=== PATIENT | female | born 1995 | race Hispanic/Latino ===

== ENCOUNTER 2017-01-24 22:16 | Inpatient (IN) | payer MEDICAID, SELFPAY ==
[2017-01-24 23:01] VITALS: BMI 27.4
[2017-01-24] MEDS ORDERED: Lactated Ringer's 1,000 ML IV SCH (23:15)
[2017-01-25] MEDS ORDERED: Fentanyl 4 mcg/Marc 0.1% Cadd 100 ML ONE (01:09)
[2017-01-25] MEDS ORDERED: Ibuprofen 800 MG TAB PO PRN (01:11)
[2017-01-25] MEDS ORDERED: Lidocaine 1% (PF) 30 ML VIAL SC PRN (01:11)
[2017-01-25] MEDS ORDERED: Acetaminophen 500 MG TAB PO PRN (01:11)
[2017-01-25] MEDS ORDERED: Ondansetron HCl/PF 4 MG/2 ML Vial IVP PRN ×3 (01:11→14:57)
[2017-01-25] MEDS ORDERED: LR / Pitocin 40 units/1000 ml 1,000 ML IV PRN (01:11)
[2017-01-25] MEDS ORDERED: Promethazine HCl 25 MG/ML VIAL IM PRN ×2 (01:11→03:22)
[2017-01-25] MEDS ORDERED: Docusate 100 MG CAP PO PRN (01:11)
[2017-01-25 02:22] LABS: Hematocrit 35.5 % (36.0-47.0); Mean Platelet Volume 13.3 fL (7.4-10.4); Red Blood Cell (RBC) Count 4.23 mill/uL (4.20-5.40); White Blood Cell (WBC) Count 13.9 thou/uL (4.8-10.8)
[2017-01-25] MEDS ORDERED: Eucerin (Mineral Oil/Petrolatum,White) 30 gm Jar TOP PRN (03:22)
[2017-01-25] MEDS ORDERED: Lactated Ringer's 500 ML IV PRN (03:22)
[2017-01-25] MEDS ORDERED: diphenhydrAMINE HCl 50 MG/ML 1 ML VIAL IVP PRN (03:22)
[2017-01-25] MEDS ORDERED: Naloxone HCl 0.4 mg/ml Vial IVP PRN ×2 (03:22)
[2017-01-25] MEDS ORDERED: Acetaminophen 325 MG TAB PO PRN (03:22)
[2017-01-25] MEDS ORDERED: ePHEDrine/0.9% NaCl/PF SYRINGE 50 mg/10 ml SLOW IVP PRN (03:22)
[2017-01-25] MEDS ORDERED: Fentanyl 4mcg/Marcaine 0.1% Cassette 100 ML EPIDURAL SCH (03:30)
[2017-01-25] MEDS ORDERED: Communication Order-Pharmacy FS SCH (03:30)
[2017-01-25] MEDS: Lactated Ringer's 1,000 ML IV SCH ×2 (03:39→17:40)
--- NOTE | 2017-01-25 05:04 | PDOC.LDPN ---
Labor & Delivery Progress Note - Subjective Subjective: comfortable - Objective Vital signs reviewed and normal: yes General: NAD, resting, breathing through contractions Uterine fundus: non tender Dilation: 8 Effacement: 100% Station: 1+ FHT: category 2, variable decelerations - Assessment (1) Active labor at term Code(s): [id number] - Current Visit: Yes Status: Acute Plan: continue plan of care
[2017-01-25] MEDS ORDERED: LR 500 ML/Oxytocin 10 units 500 ML IV SCH (07:15)
--- NOTE | 2017-01-25 08:48 | PDOC.LDPN ---
Labor & Delivery Progress Note - Subjective Subjective: comfortable, vaginal pressure - Objective Vital signs reviewed and normal: yes General: NAD, resting Uterine fundus: non tender SVE: 9/100/+1 FHT: category 1 [place] contractions every: 3-4 min AROM: clear fluid - Assessment (1) Active labor at term Code(s): [id number] - Current Visit: Yes Status: Acute Comment: Continue pitocin. Recheck in 1-2 hours or if feeling more pressure. Prepare for impending delivery. FHT Cat I. Plan: continue plan of care, pitocin for augmentation <Munir Sandoval - Last Filed: 01/25/17 08:46> -: Discussed with resident and I agree with their assessment and plan. <Christiano Rapp - Last Filed: 01/25/17 09:37>
--- NOTE | 2017-01-25 11:09 | PDOC.LDPN ---
Labor & Delivery Progress Note - Subjective Subjective: comfortable, vaginal pressure - Objective Vital signs reviewed and normal: yes General: NAD, breathing through contractions Uterine fundus: palpable contractions Dilation: 10 Effacement: 100% Station: 1+ FHT: category 2 (baseline 150, variable decels when pushing, mod variability), variable decelerations, variability present [place] contractions every: 2-3 minutes Plan: continue plan of care, pitocin for augmentation -: Patient has been laboring down for the past hour. The nurse is now teaching her how to push to see how well she moves the baby. Will continue pitocin. <Jacque Barcenas - Last Filed: 01/25/17 11:07> -: Discussed with Dr. Barcenas. I agree with her A&P. <Christiano Rapp - Last Filed: 01/25/17 11:20>
[2017-01-25] MEDS ORDERED: Bisacodyl 10 MG SUPP PR PRN (14:57)
[2017-01-25] MEDS ORDERED: LR / Pitocin 40 units/1000 ml 1,000 ML IV SCH (14:57)
[2017-01-25] MEDS ORDERED: Preparation H Ointment 28 GM TUBE PR PRN (14:57)
[2017-01-25] MEDS ORDERED: diphenhydrAMINE HCl 25 MG CAP PO PRN (14:57)
[2017-01-25] MEDS ORDERED: Lanolin Ointment 7 GM TUBE TOP PRN (14:57)
[2017-01-25] MEDS ORDERED: Milk Of Magnesia 30 ML UDCUP PO PRN (14:57)
[2017-01-25] MEDS ORDERED: Adacel (T-DAP) 0.5 ML VIAL IM ONE (14:57)
[2017-01-25] MEDS ORDERED: Benzocaine/Menthol 20-0.5% 60 ML CAN TOP PRN (14:57)
[2017-01-25] MEDS: Ferrous Sulfate 325 MG TAB PO SCH (17:40)
[2017-01-25] MEDS: Ibuprofen 800 MG TAB PO SCH (22:05)
[2017-01-25] MEDS: Docusate (Surfak) 240 MG CAP PO SCH (22:05)
--- NOTE | 2017-01-25 23:33 | DN-2 ---
VAGINAL DELIVERY NOTE DELIVERING PHYSICIANS: Dr. Jacque Barcenas and Dr. Munir Sandoval. ATTENDING PHYSICIAN: Christiano Rapp MD. PROCEDURE: Spontaneous vaginal delivery. ANESTHESIA: Epidural, local lidocaine for repair. ESTIMATED BLOOD LOSS: 300 mL PREOPERATIVE DIAGNOSIS: Term intrauterine in labor. POSTOPERATIVE DIAGNOSIS: Term intrauterine , delivered. INDICATIONS: A 21-year-old female, G1, P0 presents in active labor. DELIVERY NOTE: This is a 21-year-old female G1, P0 at 40.1 weeks gestational age. She delivered a viable male at 1318 on 01/25/2017. Following an uneventful antepartum course, vigorous male was delivered over an intact perineum in the occipitoanterior position. Anterior shoulder and the remainder of the body delivered. No nuchal cord. The head was held down and the mouth and nares were bulb suctioned. Cord clamping was delayed for 30 seconds, as baby was vigorous, but then the cord was clamped and cut, and cord blood collected. Placenta delivered via [place] mechanism intact with a 3-vessel cord noted. Fundal massage was performed and the fundus was firm. The cervix was inspected and found to be free of lacerations. There was a second-degree perineal laceration noted that was repaired with Vicryl in the usual fashion with good approximation and hemostasis after local lidocaine 10 mL was injected at the site. Infant went to nursery in good condition for routine care. Apgars were 8 and 9 at 1 and 5 minutes, respectively. The patient tolerated delivery well and went to after routine recovery care. [facility] CENTERReji
[2017-01-26 04:21] LABS: Mean Platelet Volume 12.5 fL (7.4-10.4); Red Blood Cell (RBC) Count 3.29 mill/uL (4.20-5.40)
[2017-01-26] MEDS: Ibuprofen 800 MG TAB PO SCH ×3 (06:25→21:02)
--- NOTE | 2017-01-26 08:34 | PDOC.PP ---
Post Progress Note Post Day #: 1 PO intake tolerated: yes Flatus: no Ambulation: yes (to the bathroom) Vital Signs (12 hours) Temp Pulse Resp BP 01/26/17 07:32 98.0 F 66 20 121/57 L 01/26/17 04:12 98.1 F 75 16 111/57 L 01/25/17 23:55 98.3 F 77 16 112/62 Weight Weight 77.111 kg - Physical Examination General: NAD Cardiovascular: no m/r/g, RRR Respiratory: clear to ausculation bilateral Abdominal: + bowel sounds, lochia (minimal), no distention, appropriately TTP Fundus firm & at: umbilicus Skin: no rash Neurological: no gross focal deficits Psychiatric: normal affect Result Diagrams: 01/26/17 04:10 Additional Labs: Post Labs Blood Type B POSITIVE 01/24/17 23:15 Hep Bs Antigen Non-Reactive S/CO (NonReactive) 01/24/17 23:15 (1) Term delivered Code(s): O80 - ENCOUNTER FOR FULL-TERM UNCOMPLICATED DELIVERY Status: Acute Comment: 21 yo @ 40.1 WGA delivered a TAGA male at 1318 on 01/25 with a second degree perineal laceration s/p repair. Continue routine post- care -pain controlled -breast feeding -tolerating PO -voiding well -encourage ambulation -likely d/c tomorrow -continue PNV -Hb 8.6, down from 10.8 - will recheck in the AM. <Jacque Barcenas - Last Filed: 01/26/17 08:32> Vital Signs (12 hours) Temp Pulse Resp BP 01/26/17 07:45 98.0 F 66 20 01/26/17 07:32 98.0 F 66 20 121/57 L 01/26/17 04:12 98.1 F 75 16 111/57 L 01/25/17 23:55 98.3 F 77 16 112/62 Weight Weight 77.111 kg Result Diagrams: 01/26/17 04:10 Additional Labs: Post Labs Blood Type B POSITIVE 01/24/17 23:15 Hep Bs Antigen Non-Reactive S/CO (NonReactive) 01/24/17 23:15 - Assessment/Plan Seen and examined with the team. I agree with their H&P and delcid portions repeated. I agree with the assessment and plan as detailed. <Christiano Rapp - Last Filed: 01/26/17 11:22>
[2017-01-26] MEDS: Ferrous Sulfate 325 MG TAB PO SCH ×2 (09:19→18:04)
[2017-01-26] MEDS: Docusate (Surfak) 240 MG CAP PO SCH ×2 (09:19→21:02)
[2017-01-26] MEDS ORDERED: HYDROcodone/Acetaminophen 5/325 mg Tablet PO PRN ×2 (14:57)
[2017-01-26] MEDS ORDERED: Bupivacaine 0.25% HCL 30 ML VIAL ONE (16:27)
[2017-01-27] MEDS: Ibuprofen 800 MG TAB PO SCH ×2 (04:57→13:16)
[2017-01-27 05:32] LABS: Hematocrit 26.3 % (36.0-47.0); Mean Platelet Volume 12.8 fL (7.4-10.4); White Blood Cell (WBC) Count 12.3 thou/uL (4.8-10.8)
--- NOTE | 2017-01-27 07:18 | PDOC.PP ---
Post Progress Note Post Day #: 2 PO intake tolerated: yes Flatus: yes Ambulation: yes Vital Signs (12 hours) Temp Pulse Resp BP 01/26/17 20:13 97.9 F 83 18 117/66 Weight Weight 77.111 kg - Physical Examination General: NAD Cardiovascular: no m/r/g, RRR Respiratory: clear to ausculation bilateral Abdominal: + bowel sounds, lochia (minimal), no distention, appropriately TTP Fundus firm & at: 2cm below the umbilicus Skin: no rash Neurological: no gross focal deficits Psychiatric: normal affect Result Diagrams: 01/27/17 04:12 Additional Labs: Post Labs Blood Type B POSITIVE 01/24/17 23:15 Hep Bs Antigen Non-Reactive S/CO (NonReactive) 01/24/17 23:15 (1) Term delivered Code(s): O80 - ENCOUNTER FOR FULL-TERM UNCOMPLICATED DELIVERY Status: Acute Comment: 21 yo @ 40.1 WGA delivered a TAGA male at 1318 on 01/25 with a second degree perineal laceration s/p repair. Continue routine post- care -pain controlled -breast feeding -tolerating PO -voiding well -encourage ambulation -d/c today -continue PNV -hemoglobin stable at 8.4 - will continue iron supplementation and follow-up outpatient <Jacque Barcenas - Last Filed: 01/27/17 07:17> Weight Weight 77.111 kg Result Diagrams: 01/27/17 04:12 Additional Labs: Post Labs Blood Type B POSITIVE 01/24/17 23:15 Hep Bs Antigen Non-Reactive S/CO (NonReactive) 01/24/17 23:15 - Assessment/Plan Seen and examined and discussed with team on rounds. I agree with the H&P as stated and agree with the A&P. <Christiano Rapp - Last Filed: 01/28/17 12:56>
[2017-01-27 08:17] VITALS: BP 122/79; TEMP 98.2
[2017-01-27] MEDS: Ferrous Sulfate 325 MG TAB PO SCH (08:40)
[2017-01-27] MEDS: Docusate (Surfak) 240 MG CAP PO SCH (08:40)
== END 2017-01-27 16:35 | disposition home or self-care (01) | DRG 775 ==
LOC: L&D/OP 22:16 → L&D 01-25 01:19 → 3SW 01-25 17:11
PROVIDERS: ADMIT Emergency Medicine; ATTEND Emergency Medicine
PROC: 10E0XZZ Delivery of Products of Conception, External Approach (ICD-10-PCS; principal; 2017-01-25)
PROC: 0KQM0ZZ Repair Perineum Muscle, Open Approach (ICD-10-PCS; 2017-01-25)
DX: O70.1 Second degree perineal laceration during delivery (principal); Z37.0 Single live birth; Z23 Encounter for immunization; Z3A.40 40 weeks gestation of pregnancy
CPT/HCPCS: 36415; 85027; 87340; 90715; J0595; J2001; J7120; S0020

== ENCOUNTER 2021-08-26 08:43 | Emergency (ER) | payer SELFPAY ==
[2021-08-26] MEDS ORDERED: predniSONE 20 MG TAB ONE (09:40)
== END 2021-08-26 09:51 | disposition home or self-care (01) ==
LOC: ERS 08:43
DX: L50.9 Urticaria, unspecified (principal)
CPT/HCPCS: 99282; J7512

== ENCOUNTER 2023-03-31 09:22 | Emergency (ER) | payer OTHER, SELFPAY ==
[2023-03-31 09:58] LABS: #Basophils 0.1 thou/uL (0.0-0.2); #Eosinphils 0.3 thou/uL (0.0-0.7); #Monocytes 0.7 thou/uL (0.11-0.59); #Neutrophils 6.6 thou/uL (1.40-6.50); %Basophils 0.7 % (0.0-1.0); %Eosinophils 2.6 % (0.0-10.0); %Lymphocytes 26.1 % (21.0-51.0); %Monocytes 6.3 % (0.0-10.0); %Neutrophils 64.1 % (42.0-75.0); Hematocrit 38.8 % (36.0-47.0); Hemoglobin 12.7 g/dL (12.0-16.0); Mean Corpuscular HGB CONC 32.7 g/dL (32.0-36.0); Mean Corpuscular Hemoglobin 28.3 pg (27.0-31.0); Mean Corpuscular Volume 86.6 fl (78.0-98.0); Mean Platelet Volume 13.5 fL (7.4-10.4); Platelet Count 175 10x3/uL (130-400); RBC Distribution Width 13.1 % (11.5-14.5); Red Blood Cell (RBC) Count 4.48 mill/uL (4.20-5.40); White Blood Cell (WBC) Count 10.3 10x3/uL (4.8-10.8)
[2023-03-31] MEDS ORDERED: Morphine 4 MG/ML VIAL ONE (10:01)
[2023-03-31] MEDS ORDERED: Ondansetron PF 4 MG/2 ML Vial ONE (10:01)
[2023-03-31 10:18] LABS: Bacteria/HPF None Seen HPF (None Seen); Bilirubin Negative (Negative); Blood, Urine Negative (Negative); CAUTI Indications for Culture Pelvic or flank pain; Clarity Clear (Clear); Glucose, Urine (Dipstick) Normal (Negative); Ketone, Urine Negative (Negative); Leukocyte Negative Leu/uL (Negative); Nitrite Negative (Negative); Pregnancy Test - Urine (BHCG) Negative (Negative); Pregu Control Background? CLEAR/WHITE (CLR/WHITE); Pregu Control Bar Appear? YES (CONTROL BAR); Protein, Urine (Dipstick) Negative (Neg-Trace); RBC/HPF 0-3 HPF (0-3); Specific Gravity 1.024 (1.002-1.036); Specific Gravity, Urine 1.024 (1.002-1.036); Urobilinogen Normal mg/dL (Less than 2); WBC/HPF 0-3 HPF (0-3)
[2023-03-31 10:19] LABS: BHCG - Serum Negative (NEGATIVE); Pregs Control Background? CLEAR/WHITE (CLR/WHITE); Pregs Control Bar Appear? YES (CONTROL BAR)
[2023-03-31 10:20] LABS: Urine Culture Reflex No No
[2023-03-31 10:27] LABS: ALT (SGPT) 23 U/L (8-55); AST (SGOT) 22 U/L (5-34); Albumin 4.1 g/dL (3.5-5.0); Alkaline Phosphatase 94 U/L (40-110); Anion Gap 13 mmol/L (10-20); BUN (Urea Nitrogen) 17 mg/dL (7.0-18.7); Bilirubin, Total 1.2 mg/dL (0.2-1.2); Calc. Creatinine Clearance 0 mL/min (70-130); Calcium 9.2 mg/dL (7.8-10.44); Carbon Dioxide 20 mmol/L (22-29); Chloride 105 mmol/L (98-107); Estimated GFR 114; Globulin 3.3 g/dL (2.4-3.5); Glucose 116 mg/dL (70-105); Lipase 18 U/L (8-78); Potassium 3.7 mmol/L (3.5-5.1); Protein, Total 7.4 g/dL (6.0-8.3); Sodium 134 mmol/L (136-145)
[2023-03-31] MEDS ORDERED: Ketorolac Tromethamine 30 MG/ML VIAL ONE (12:31)
[2023-03-31] MEDS ORDERED: Ondansetron ODT 4 MG TAB ONE (12:38)
== END 2023-03-31 12:42 | disposition home or self-care (01) ==
LOC: ERS 09:22
DX: R10.13 Epigastric pain (principal)
CPT/HCPCS: 36415; 76705; 80053; 81001; 81025; 83690; 84703; 85025; 96361; 96374; 96375; J1885; J2270; J2405; Q0162